=== PATIENT | male | born 1995 | race Caucasian/White ===

== ENCOUNTER 2016-06-20 10:18 | Emergency (ER) | payer SELFPAY ==
[~2016-06-20] VITALS: Ht 177.8 cm; Wt 68.0 kg
[~2016-06-20 10:18] MED LIST: AMOX500T PO; DICL50 PO
[2016-06-20 10:23] VITALS: BP 134/70; PULSE 54; RESP 20; O2SAT 94
--- NOTE | 2016-06-20 11:21 | PD ---
HPI Chief Complaint: GI Complaint Time Seen by Provider: 11:21 Travel History International Travel<30 days: No Contact w/Intl Traveler<30days: No Traveled to known affect area: No History of Present Illness HPI 21-year-old male presents to the ED for evaluation of actually 6 hours of subjective fevers, nausea, vomiting. Patient states he woke up this morning feeling ill, estimates 20-30 episodes of vomiting. Girlfriend is at bedside and states that the vomitus has been nonbloody, mostly bile for the past few hours. Patient also endorses 10 to 15 episodes of watery diarrhea. Denies blood in the bowl or on the paper. Also complains of clear rhinorrhea, nonproductive cough. Denies ear pain, sore throat, abdominal pain, dysuria, back pain. He did not receive this years flu vaccination. He denies sick contacts. Denies chronic health problems, takes no daily medications. PFSH Past Medical History Diminished Hearing: No Social History Alcohol Use: No Tobacco Use: Yes (1/2 pack day) Substance Use: Yes (+ pot) Allergies-Medications (Allergen,Severity, Reaction): Coded Allergies: No Known Allergies (Unverified , 06/20/16) Reported Meds & Prescriptions Reported Meds & Active Scripts Active Zofran Odt (Ondansetron Odt) 4 Mg Tab 4 Mg SL Q12HR PRN [id number] Mg 50 Mg Tabec 50 Mg PO TID Amoxicillin 500 Mg Cap 500 Mg PO TID Review of Systems Except as stated in HPI: all other systems reviewed are Neg Physical Exam Narrative GENERAL: Well-nourished, well-developed ill-appearing, dry heaving white male. SKIN: Warm and dry. HEAD: Normocephalic. EYES: No scleral icterus. No injection or drainage. ENT: Pearly nails tympanic membrane's bilaterally. Nasal mucosa moist. Oropharynx without erythema, edema or exudates. NECK: Supple, trachea midline. No JVD or lymphadenopathy. CARDIOVASCULAR: Regular rate and rhythm without murmurs, gallops, or rubs. 2+ DP and radial pulses bilaterally. RESPIRATORY: Breath sounds clear and equal bilaterally. No accessory muscle use. GASTROINTESTINAL: Abdomen soft, non-tender, nondistended. Hyperactive bowel sounds. MUSCULOSKELETAL: No cyanosis, or edema. BACK: Nontender without obvious deformity. No CVA tenderness. Data Data Last Documented VS Vital Signs Date Time Temp Pulse Resp B/P Pulse Ox O2 Delivery O2 Flow Rate FiO2 06/20/16 14:04 97.6 06/20/16 13:42 60 18 126/72 96 Room Air Orders Complete Blood Count With Diff (06/20/16 11:28) Comprehensive Metabolic Panel (06/20/16 11:28) Lactic Acid (06/20/16 11:28) Urinalysis - C+S If Indicated (06/20/16 11:28) Iv Access Insert/Monitor (06/20/16 11:28) Ondansetron Inj (Zofran Inj) (06/20/16 11:30) Sodium Chlor 0.9% 1000 Ml Inj (Ns 1000 M (06/20/16 11:28) Influenzae A/B Antigen (06/20/16 11:32) Lipase (06/20/16 11:35) Sodium Chlor 0.9% 1000 Ml Inj (Ns 1000 M (06/20/16 13:30) Labs Laboratory Tests Test 06/20/16 06/20/16 11:55 13:13 White Blood Count 23.2 TH/MM3 Red Blood Count 5.56 MIL/MM3 Hemoglobin 17.2 GM/DL Hematocrit 51.3 % Mean Corpuscular Volume 92.2 FL Mean Corpuscular Hemoglobin 30.9 PG Mean Corpuscular Hemoglobin 33.5 % Concent Red Cell Distribution Width 13.9 % Platelet Count 221 TH/MM3 Mean Platelet Volume 8.6 FL Neutrophils (%) (Auto) 92.2 % Lymphocytes (%) (Auto) 2.8 % Monocytes (%) (Auto) 4.3 % Eosinophils (%) (Auto) 0.6 % Basophils (%) (Auto) 0.1 % Neutrophils # (Auto) 21.4 TH/MM3 Lymphocytes # (Auto) 0.6 TH/MM3 Monocytes # (Auto) 1.0 TH/MM3 Eosinophils # (Auto) 0.1 TH/MM3 Basophils # (Auto) 0.0 TH/MM3 CBC Comment DIFF FINAL Differential Comment Sodium Level 138 MEQ/L Potassium Level 4.2 MEQ/L Chloride Level 107 MEQ/L Carbon Dioxide Level 24.6 MEQ/L Anion Gap 6 MEQ/L Blood Urea Nitrogen 16 MG/DL Creatinine 1.08 MG/DL Estimat Glomerular Filtration 85 ML/MIN Rate Random Glucose 107 MG/DL Lactic Acid Level 1.8 mmol/L Calcium Level 10.0 MG/DL Total Bilirubin 0.9 MG/DL Aspartate Amino Transf 25 U/L (AST/SGOT) Alanine Aminotransferase 32 U/L (ALT/SGPT) Alkaline Phosphatase 82 U/L Total Protein 8.9 GM/DL Albumin 5.3 GM/DL Lipase 82 U/L Urine Color YELLOW Urine Turbidity HAZY Urine pH 5.5 Urine Specific [place] 1.032 Urine Protein 30 mg/dL Urine Glucose (UA) NEG mg/dL Urine Ketones NEG mg/dL Urine Occult Blood NEG Urine Nitrite NEG Urine Bilirubin NEG Urine Urobilinogen LESS THAN 2.0 MG/DL Urine Leukocyte Esterase NEG Urine WBC 2 /hpf Urine Mucus MANY /lpf Microscopic Urinalysis Comment CULT NOT INDICATED MDM Medical Decision Making Medical Screen Exam Complete: Yes Emergency Medical Condition: Yes Differential Diagnosis viral syndrome versus influenza versus gastritis versus UTI versus electrolyte abnormality versus dehydration versus other Narrative Course 21-year-old male presents to the ED for evaluation of actually 6 hours of subjective fevers, nausea, vomiting. Patient states he woke up this morning feeling ill, estimates 20-30 episodes of nonbloody, billious vomiting. Patient also endorses 10 to 15 episodes of watery diarrhea. Denies blood in the bowl or on the paper. Also complains of clear rhinorrhea, nonproductive cough. Denies ear pain, sore throat, abdominal pain, dysuria, back pain. He did not receive this years flu vaccination. Vitals reviewed. Patient is afebrile on presentation. Physical exam reveals an ill-appearing white male, retching and dry heaving. ENT exam is unremarkable. Abdomen soft, nontender to deep palpation, no CVA tenderness. IV was established. Patient was administered 4 mg Zofran, 2 liters NS. CBC: WBC 23.2. 9 2.9% neutrophils. Hgb 17.2. CMP: Unremarkable Lactic acid 1.8. Lipase: 82 UA: No culture indicated. Influenza swab: Negative Recheck of the patient reveals resolution of nausea and vomiting. I discussed the patient, workup and plan of care with Dr. Jerome. Suspect viral gastritis. Patient is provided a few doses of Zofran. He is instructed to eat a bland diet for the next few days, gradually reintroduce new foods, increase fluid intake with Pedialyte, sports drinks, broth, water. We discussed reasons to return to the ED. He indicated understanding of the instructions. He is amenable to plan of care. He is stable and discharged home. Diagnosis Primary Impression: Nausea and vomiting in adult Referrals: Primary Care Physician Patient Instructions: Acute Nausea and Vomiting (ED), Diet for Stomach Ulcers and Gastritis (ED), General Instructions Additional Instructions: Rest, hydrate. Drink sports drinks, Pedialyte, broth, clear liquids. [place] diet for the next few days, gradually reintroduce new foods. Zofran as needed for nausea and vomiting. Return to the ED for worsening of symptoms, including abdominal pain, fevers, vomiting not responsive to Zofran. Follow-up with the primary care provider this week. Return to the ED for any urgent or emergent medical condition. Med/Other Pt SpecificInfo: Prescription(s) given Scripts Ondansetron Odt (Zofran Odt)4 Mg Tab4 Mg SL Q12HR PRN (Nausea/Vomiting) #3 TAB Ref 0 Prov:Ramona Jerome MD 06/20/16 Disposition: 01 DISCHARGE HOME Condition: Stable Lyly Walden Jun 20, 2016 11:21
[2016-06-20] MEDS ORDERED: SODIUM CHLOR 0.9% 1000 ML INJ 1,000 ML IV SCH (11:28)
[2016-06-20] MEDS ORDERED: ONDANSETRON HCL 4 MG/2 ML VIAL IVP ONE (11:30)
[2016-06-20 12:49] LABS: AUTOMATED NEUTROPHIL # 21.4 TH/MM3 (1.8-7.7); BASOPHIL % 0.1 % (0.0-2.0); EOSINOPHIL # 0.1 TH/MM3 (0-0.4); EOSINOPHIL % 0.6 % (0.0-4.0); HEMATOCRIT 51.3 % (39.0-51.0); HEMO FLAGS DIFF FINAL; LYMPH % 2.8 % (9.0-44.0); LYMPHOCYTE # 0.6 TH/MM3 (1.0-4.8); MEAN CELL VOLUME 92.2 FL (80.0-100.0); MEAN CORPUSCULAR HEMOGLOBIN 30.9 PG (27.0-34.0); MEAN CORPUSCULAR HGB CONC 33.5 % (32.0-36.0); MONO % 4.3 % (0.0-8.0); NEUT % 92.2 % (16.0-70.0); PLATELET COUNT 221 TH/MM3 (150-450); RED BLOOD COUNT 5.56 MIL/MM3 (4.50-5.90); RED CELL DISTRIBUTION WIDTH 13.9 % (11.6-17.2); WHITE BLOOD COUNT 23.2 TH/MM3 (4.0-11.0)
[2016-06-20 13:10] LABS: ALKALINE PHOSPHATASE 82 U/L (45-117); TOTAL BILIRUBIN ADULT 0.9 MG/DL (0.2-1.0)
[2016-06-20 13:16] LABS: ALT (GPT) 32 U/L (12-78); ANION GAP 6 MEQ/L (5-15); BICARBONATE 24.6 MEQ/L (21.0-32.0); BLOOD UREA NITROGEN 16 MG/DL (7-18); CHLORIDE 107 MEQ/L (98-107); GLOMERULAR FILTRATION RATE 85 ML/MIN (>89); SODIUM (NA) 138 MEQ/L (136-145)
[2016-06-20 13:18] LABS: AST (GOT) 25 U/L (15-37); POTASSIUM 4.2 MEQ/L (3.5-5.1)
[2016-06-20 13:29] LABS: BLOOD, URINE NEG (NEG); GLUCOSE,URINE NEG (NEG); KETONE, URINE NEG (NEG); MUCUS URINE MANY /lpf (OCC); NITRITE,URINE NEG (NEG); PH, URINE 5.5 (5.0-8.5); URINE COLOR YELLOW (YELLW/STRAW)
[2016-06-20] MEDS ORDERED: SODIUM CHLOR 0.9% 1000 ML INJ 1,000 ML IV ONE (13:30)
[2016-06-20 13:34] LABS: COMMENT (UR) CULT NOT INDICATED; CULTURE IF INDICATED CULT NOT INDICATED
[2016-06-20 13:42] VITALS: BP 126/72; PULSE 60; RESP 18; O2SAT 96
[2016-06-20 14:04] VITALS: TEMP 97.6
[2016-06-20] MEDS ORDERED: ZOFR4TAB3 SL (14:17)
== END 2016-06-20 14:38 | disposition home or self-care (01) ==
LOC: NETRI 10:18
DX: R11.2 Nausea with vomiting, unspecified (principal); R19.7 Diarrhea, unspecified; R05 Cough; J34.89 Other specified disorders of nose and nasal sinuses; F17.200 Nicotine dependence, unspecified, uncomplicated
CPT/HCPCS: 80053; 81001; 83605; 83690; 85025; 87804; 96361; 96374; 99284; J2405; J7030

== ENCOUNTER 2017-01-10 23:04 | Emergency (ER) | payer SELFPAY ==
[~2017-01-10] VITALS: Ht 185.4 cm; Wt 72.0 kg
[~2017-01-10 23:04] MED LIST changes: +ZOFR4TAB3 SL
[2017-01-10 23:06] VITALS: BP 166/87; PULSE 68; RESP 18; TEMP 98.1; O2SAT 98
--- NOTE | 2017-01-10 23:43 | PD ---
HPI Chief Complaint: GI Complaint Time Seen by Provider: 23:37 Travel History International Travel<30 days: No Contact w/Intl Traveler<30days: No Traveled to known affect area: No History of Present Illness HPI 21-year-old male came to the emergency room with history of severe vomiting that has pretty much been continuous since 1 AM yesterday. Patient says that the night before he drank 3 cocktails. Usually he does not drink alcohol. Soon after that he started vomiting. Somewhere around 4 PM the vomiting started to have bloody streaks in them. After that every time he vomited there was more quantity of bleeding. When he came to the emergency room he was retching and vomiting and shaking. He is otherwise a healthy person. His vital signs were stable. Says his throat hurts from all the vomiting. [facility] Past Medical History Narrative Medical List of his past medical, surgical, social and family history is reviewed from the nursing note. Diminished Hearing: No Immunizations Current: Yes Tetanus Vaccination: Unknown Influenza Vaccination: No Social History Alcohol Use: Yes (socially) Tobacco Use: Yes (1/2 pack day) Substance Use: Yes (+ pot) Allergies-Medications (Allergen,Severity, Reaction): Coded Allergies: No Known Allergies (Unverified , 01/10/17) Comments No known drug allergies. Reported Meds & Prescriptions Reported Meds & Active Scripts Active Zofran Odt (Ondansetron Odt) 4 Mg Tab 4 Mg SL Q6HR PRN Protonix (Pantoprazole Sodium) 40 Mg Tab 40 Mg PO DAILY Zofran Odt (Ondansetron Odt) 4 Mg Tab 4 Mg SL Q12HR PRN Voltaren (Diclofenac Sodium) 50 Mg Tabec 50 Mg PO TID Amoxicillin 500 Mg Cap 500 Mg PO TID Narrative Medication List of his home medications reviewed from the nursing note. Review of Systems Except as stated in HPI: all other systems reviewed are Neg Physical Exam Narrative GENERAL: Awake, alert, anxious, moderate distress SKIN: Focused skin assessment warm/dry. HEAD: Atraumatic. Normocephalic. EYES: Pupils equal and round. No scleral icterus. No injection or drainage. ENT: No nasal bleeding or discharge. Mucous membranes pink and moist. NECK: Trachea midline. No JVD. CARDIOVASCULAR: Regular rate and rhythm. No murmur appreciated. RESPIRATORY: No accessory muscle use. Clear to auscultation. Breath sounds equal bilaterally. GASTROINTESTINAL: Abdomen soft, non-tender, nondistended. Hepatic and splenic margins not palpable. MUSCULOSKELETAL: No obvious deformities. No clubbing. No cyanosis. No edema. NEUROLOGICAL: Awake and alert. No obvious cranial nerve deficits. Motor grossly within normal limits. Normal speech. PSYCHIATRIC: Appropriate mood and affect; insight and judgment normal. Data Data Last Documented VS Vital Signs Date Time Temp Pulse Resp B/P (MAP) Pulse Ox O2 Delivery O2 Flow Rate FiO2 01/11/17 01:33 01/11/17 00:24 50 16 98 Room Air 01/10/17 23:06 98.1 Orders Orders Ondansetron Inj (Zofran Inj) (01/10/17 23:45) Complete Blood Count With Diff (01/10/17 23:45) Comprehensive Metabolic Panel (01/10/17 23:45) Lipase (01/10/17 23:45) Iv Access Insert/Monitor (01/10/17 23:45) Ecg Monitoring (01/10/17 23:45) Oximetry (01/10/17 23:45) Sodium Chlor 0.9% 1000 Ml Inj (Ns 1000 M (01/10/17 23:45) Sodium Chloride 0.9% Flush (Ns Flush) (01/10/17 23:45) Pantoprazole Inj (Protonix Inj) (01/11/17 00:00) Sodium Chlor 0.9% 1000 Ml Inj (Ns 1000 M (01/11/17 00:45) Labs Laboratory Tests Test 01/11/17 00:10 White Blood Count 15.8 TH/MM3 Red Blood Count 5.29 MIL/MM3 Hemoglobin 16.5 GM/DL Hematocrit 48.5 % Mean Corpuscular Volume 91.6 FL Mean Corpuscular Hemoglobin 31.2 PG Mean Corpuscular Hemoglobin Concent 34.1 % Red Cell Distribution Width 14.0 % Platelet Count 277 TH/MM3 Mean Platelet Volume 8.7 FL Neutrophils (%) (Auto) 83.0 % Lymphocytes (%) (Auto) 10.0 % Monocytes (%) (Auto) 6.3 % Eosinophils (%) (Auto) 0.2 % Basophils (%) (Auto) 0.5 % Neutrophils # (Auto) 13.2 TH/MM3 Lymphocytes # (Auto) 1.6 TH/MM3 Monocytes # (Auto) 1.0 TH/MM3 Eosinophils # (Auto) 0.0 TH/MM3 Basophils # (Auto) 0.1 TH/MM3 CBC Comment DIFF FINAL Differential Comment Blood Urea Nitrogen 17 MG/DL Creatinine 1.04 MG/DL Random Glucose 104 MG/DL Total Protein 8.8 GM/DL Albumin 5.1 GM/DL Calcium Level 9.6 MG/DL Alkaline Phosphatase 77 U/L Aspartate Amino Transf (AST/SGOT) 20 U/L Alanine Aminotransferase (ALT/SGPT) 28 U/L Total Bilirubin 1.0 MG/DL Sodium Level 143 MEQ/L Potassium Level 3.8 MEQ/L Chloride Level 105 MEQ/L Carbon Dioxide Level 25.4 MEQ/L Anion Gap 13 MEQ/L Estimat Glomerular Filtration Rate 89 ML/MIN Lipase 59 U/L MDM Medical Decision Making Medical Screen Exam Complete: Yes Emergency Medical Condition: Yes Medical Record Reviewed: Yes Differential Diagnosis Patricia-Higgins tear, Boerhaave's syndrome, alcoholic gastritis, alcoholic ketoacidosis Narrative Course 12:38 AM CBC is back and patient has some leukocytosis which could be explained from the violent retching constantly for past almost 24 hours. However hemoglobin and hematocrit is within normal limits. Awaiting for the chemistry. Patient is getting 1 L of IV fluid bolus and Zofran. I will also given him IV Protonix. Patient has not vomited anymore since then. 1:01 AM blood test results of back and patient is not acidotic. He is onto his second liter of IV fluid bolus. He has not vomited anymore and wants something to drink. I've asked the nurse to hold off on the by mouth fluid till the IV fluid has finished. Patient will be able to go home after that. I'll give him a prescription for Zofran and Protonix. Procedures EKG Prior to Arrival: No HemaPrompt Point of Care Internal Pos. & Neg. Controls: Passed Fecal Specimen Occult Blood: Negative Diagnosis Primary Impression: Alcoholic gastritis with bleeding Qualified Codes: K29.21 - Alcoholic gastritis with bleeding Referrals: Primary Care Physician Additional Instructions: Please return to the ER if the condition worsens or any other new concerns. Otherwise follow-up with your primary care. Take the medications as per the prescription direction. Take clear liquid diet for the next 24 hours. After which he should be slowly able to progress to regular diet. Med/Other Pt SpecificInfo: Prescription(s) given Scripts Ondansetron Odt (Zofran Odt) 4 Mg Tab 4 MG SL Q6HR Y for Nausea/Vomiting, #15 TAB 0 Refills Prov: Ar De Oliveira MD 01/11/17 Pantoprazole (Protonix) 40 Mg Tab 40 MG PO DAILY for Reflux, #15 TAB 0 Refills Prov: Ar De Oliveira MD 01/11/17 Disposition: 01 DISCHARGE HOME Condition: Stable Ar De Oliveira MD Jan 10, 2017 23:43
[2017-01-10] MEDS ORDERED: ONDANSETRON HCL 4 MG/2 ML VIAL IV PUSH ONE (23:45)
[2017-01-10] MEDS ORDERED: SODIUM CHLORIDE 0.9% FLUSH 10 ML FLUSH IV FLUSH PRN (23:45)
[2017-01-10] MEDS ORDERED: SODIUM CHLOR 0.9% 1000 ML INJ 1,000 ML IV SCH (23:45)
[2017-01-11] MEDS ORDERED: PANTOPRAZOLE SODIUM 40 MG VIAL IV PUSH ONE
[2017-01-11 00:24] VITALS: PULSE 50; RESP 16; O2SAT 98
[2017-01-11 00:30] LABS: AUTOMATED NEUTROPHIL # 13.2 TH/MM3 (1.8-7.7); BASOPHIL # 0.1 TH/MM3 (0-0.2); BASOPHIL % 0.5 % (0.0-2.0); EOSINOPHIL % 0.2 % (0.0-4.0); HEMATOCRIT 48.5 % (39.0-51.0); HEMO FLAGS DIFF FINAL; LYMPHOCYTE # 1.6 TH/MM3 (1.0-4.8); MEAN CELL VOLUME 91.6 FL (80.0-100.0); MEAN CORPUSCULAR HEMOGLOBIN 31.2 PG (27.0-34.0); MEAN CORPUSCULAR HGB CONC 34.1 % (32.0-36.0); MONO % 6.3 % (0.0-8.0); PLATELET COUNT 277 TH/MM3 (150-450); RED BLOOD COUNT 5.29 MIL/MM3 (4.50-5.90); WHITE BLOOD COUNT 15.8 TH/MM3 (4.0-11.0)
[2017-01-11] MEDS ORDERED: SODIUM CHLOR 0.9% 1000 ML INJ 1,000 ML IV ONE (00:45)
[2017-01-11 00:53] LABS: ALT (GPT) 28 U/L (12-78); ANION GAP 13 MEQ/L (5-15); AST (GOT) 20 U/L (15-37); BICARBONATE 25.4 MEQ/L (21.0-32.0); BLOOD UREA NITROGEN 17 MG/DL (7-18); CHLORIDE 105 MEQ/L (98-107); GLOMERULAR FILTRATION RATE 89 ML/MIN (>89); POTASSIUM 3.8 MEQ/L (3.5-5.1); SODIUM (NA) 143 MEQ/L (136-145)
[2017-01-11 00:55] LABS: ALKALINE PHOSPHATASE 77 U/L (45-117)
[2017-01-11] MEDS ORDERED: PROT40TA PO (01:04)
[2017-01-11] MEDS ORDERED: ZOFR4TAB3 SL (01:04)
== END 2017-01-11 01:33 | disposition home or self-care (01) ==
LOC: NEPD 23:04
DX: K29.21 Alcoholic gastritis with bleeding (principal); D72.829 Elevated white blood cell count, unspecified; F17.200 Nicotine dependence, unspecified, uncomplicated
CPT/HCPCS: 80053; 83690; 85025; 96361; 96374; 96375; 99284; C9113; J2405; J7030